=== PATIENT | female | born 1970 | race Caucasian/White ===

== ENCOUNTER → 2023-12-07 15:17 | Outpatient (REF) | payer BC, SELFPAY | LOC: HWRAD 15:17 | PROVIDERS: ATTENDING PHYSICIAN Surgery; FAMILY PHYSICIAN Family Medicine | DX: K43.9 Ventral hernia without obstruction or gangrene (principal) | CPT/HCPCS: 74177; Q9967 ==

== ENCOUNTER 2023-12-19 06:18 | Day surgery (SDC) | payer BC, SELFPAY ==
[2023-12-13 13:14] VITALS: BMI 20.9
[2023-12-19] VITALS (10 sets, daily range): BP systolic 102–119; BP diastolic 55–77; BMI 20.9
[2023-12-19] MEDS: NORMOSOL-R 1000 IV (07:04)
[2023-12-19] MEDS: TYLENOL 1000 MG PO (07:05)
--- NOTE | 2023-12-19 09:08 | W.IMMPOSTOP ---
Surgical Immed Post Op Note
-
Primary Surgeon: Juanita
Assisting: Charmaine
Pre-op Diagnosis: Epigastric hernia
Post-op Diagnosis: Same
Procedure Performed: Robot assisted laparoscopic repair of epigastric hernia (rTAPP)
Anesthesia Type: GETA + TAP block
Specimen / Cultures: None
Estimated Blood Loss: 10cc
Complications: None immediate
Operative Findings: [id number] epigastric defect, 8cm x 8cm bard soft mesh
--- NOTE | 2023-12-19 09:09 | OR.RPT ---
Operative Report
Operative Report
Primary Surgeon: Juanita
Assisting: Charmaine
Pre-op Diagnosis: Epigastric hernia
Post-op Diagnosis: Same
Procedure Performed: Robot assisted laparoscopic repair of epigastric hernia (rTAPP)
Anesthesia Type: GETA + TAP block
Specimen / Cultures: None
Estimated Blood Loss: 10cc
Complications: None immediate
Operative Findings: [id number] epigastric defect, 8cm x 8cm bard soft mesh
Date of Surgery:� 12/19/23
Indications:� This 53F developed�a symptomatic epigastric hernia. Repair was thus indicated and laparoscopic approach was elected.
Description of procedure:� The patient was taken to the operating room and the correct site of surgery was verified. General anesthesia was induced and the patient was placed supine on the operating table with arms tucked.� The patient�s abdomen was
prepped and draped in standard sterile fashion. A time-out was completed verifying correct patient, procedure, site, positioning, and implants and special equipment prior to beginning this procedure. A stab incision was made in the left upper
quadrant, a Veress needle was inserted and proper position was confirmed by aspiration and saline drop test. Following this, pneumoperitoneum was created with insufflation of carbon dioxide to 12 mmHg. Then a 8mm robotic trocar was inserted at the
left anterior axillary line at the level of the umbilicus. A laparoscope was inserted and the area of initial trocar entry and Veress needle placement were both inspected and free of trauma. Two 8mm trocars were then placed a hand's breadth above
and below the initial trocar under direct visualization. The peritoneum was incised at the falciform ligament and a flap was developed in transverse and caudad directions using blunt and sharp dissection. The epigastric defect at the midline
measured 5mm x 3mm. The defect was closed with 0 PDS stratafix suture.� An 8cm x 8cm piece of bard soft mesh was passed into the abdomen. The mesh was moved into position to lay flat against the abdominal wall, centered on the defect. The mesh was
secured into place using 2-0 vicryl suture under the defect and at all four corners as well as mcc along each side.� A 2-0 monocryl stratafix was used to close the flap. A few small flap rents were closed with 2-0 vicryl suture. A transversus
abdominis plane block was performed under laparoscopic vision using decadron/marcaine. After ensuring adequate hemostasis, the trocars were removed and the pneumoperitoneum allowed to escape. The trocar incisions were closed at the skin level using
4-0 monocryl and topical skin adhesive. The patient tolerated the procedure well and was taken to the postanesthesia care unit in stable condition.
== END 2023-12-19 12:15 | disposition home or self-care (01) ==
LOC: SDS 06:18
PROVIDERS: ATTENDING PHYSICIAN Surgery; FAMILY PHYSICIAN Family Medicine; OTHER PHYSICIAN Obstetrics & Gynecology
DX: K43.9 Ventral hernia without obstruction or gangrene (principal)
CPT/HCPCS: 49591; 36415; 93005; C1781